=== PATIENT | female | born 1950 | race Native Hawaiian/Other Pacific Islander ===

== ENCOUNTER 2021-07-21 21:17 | Emergency (ER) | payer OTHER ==
[~2021-07-21] VITALS: Ht 170.2 cm; Wt 117.0 kg
[2021-07-21 21:17] VITALS: BP 168/77; TEMP 98.8
[2021-07-21 22:33] LABS: POTASSIUM 2.8 mmol/L (3.6-5.2)
[2021-07-21 22:46] LABS: PLATELET COUNT 218 K/uL (152-353)
[2021-07-22] MEDS ORDERED: MIDODRINE5 MG PO (14:30)
[2021-07-22] MEDS ORDERED: HYDROCODONE BIT1 TA1 PO (14:31)
[2021-07-22] MEDS ORDERED: DIVALPROEX500 MG PO (14:32)
[2021-07-22] MEDS ORDERED: MELOXICAM7.5 MG PO (14:33)
[2021-07-22] MEDS ORDERED: LIPITOR10 MG PO (14:33)
[2021-07-22] MEDS ORDERED: ZIPRASIDONE HYD40 MG PO (14:34)
[2021-07-22] MEDS ORDERED: NEURONTIN 100M100 MG PO (14:35)
[2021-07-22] MEDS ORDERED: FUROSEMIDE40 MG PO (14:35)
[2021-07-22] MEDS ORDERED: BUSPIRONE HYDROC5 MG PO (14:37)
[2021-07-22] MEDS ORDERED: BENZ1TAB43 PO (14:37)
[2021-07-22] MEDS ORDERED: POTASSIUM CHLO20 ME2 PO (14:40)
[2021-07-22] MEDS ORDERED: CHLO0.12 PO (14:45)
[2021-07-22] MEDS ORDERED: TYLENOL325 MG PO (14:47)
[2021-07-22] MEDS ORDERED: ARTIFICIAL TEARS1 % OPTH (14:48)
[2021-07-22] MEDS ORDERED: ASPIRIN/ENTERIC81 MG PO (14:49)
[2021-07-22] MEDS ORDERED: DOCU100C10 PO (14:49)
[2021-07-22] MEDS ORDERED: CRANBERRY450 MG PO (14:50)
[2021-07-22] MEDS ORDERED: FISH OIL1 C10 PO ×2 (14:51→14:58)
[2021-07-22] MEDS ORDERED: FERROUS SULF325 M1 PO (14:51)
[2021-07-22] MEDS ORDERED: FURO40TA93 PO (14:53)
[2021-07-22] MEDS ORDERED: MAGN400T4 PO (14:54)
[2021-07-22] MEDS ORDERED: MELATONIN CR3 MG PO (14:54)
[2021-07-22] MEDS ORDERED: MULTIVIT W/MINERALS PO (14:57)
== END 2021-07-22 00:05 | disposition still patient (30) ==
LOC: ED 21:17
PROVIDERS: Hospitalist
DX: F31.89 Other bipolar disorder (principal); N39.45 Continuous leakage; Z11.52 Encounter for screening for COVID-19; Z04.6 Encounter for general psychiatric examination, requested by authority
CPT/HCPCS: 80053; 81000; 85027; 87077; 87086; 87088; 87186; 87635; 93005; 99283; U0003